=== PATIENT | male | born 2000 | race Hispanic/Latino ===

== ENCOUNTER 2024-05-27 21:36 | Emergency (ER) | payer SELFPAY ==
[2024-05-27] MEDS ORDERED: Ketorolac Tromethamine 30 MG (1 mL) VIAL ONE (22:53)
== END 2024-05-27 22:58 | disposition home or self-care (01) ==
LOC: CSHERS 21:36
DX: M54.50 Low back pain, unspecified (principal); X50.0XXA Overexertion from strenuous movement or load, initial encounter; Y93.F2 Activity, caregiving, lifting
CPT/HCPCS: 72131; 96372; J1885